=== PATIENT | male | born 1965 | race Caucasian/White ===

== ENCOUNTER 2017-06-17 10:02 | Inpatient (IN) ==
[2017-06-17 10:48] LABS: Mean Corpuscular Hemoglobin 20.9 pg (28.0-33.3); Red Cell Distribution Width 26.5 % (11.5-14.5)
[2017-06-17 10:49] LABS: Hematocrit 21.3 % (37.5-50.1); Mean Corpuscular HGB Conc 29.1 g/dL (31.6-35.5); Mean Platelet Volume 9.4 fL (9.4-12.4); Platelet Count 435 K/mcL (140-400); Red Blood Count 2.96 M/mcL (4.19-5.50)
[2017-06-17 10:51] LABS: Hemoglobin 6.2 g/dL (12.9-16.9)
[2017-06-17 10:53] LABS: INR 1.1; Prothrombin Time 11.5 Seconds (9.4-12.1)
--- NOTE | 2017-06-17 10:53 | Emergency Department Note ---
Disposition Clinical Impression: Anemia Qualifiers: Anemia type: unspecified type Qualified Code(s): D64.9 - Anemia, unspecified Disposition: Still a Patient Condition: Fair Referrals: Jeyson Cantrell MD [Primary Care Provider] - Forms: ED Satisfaction Letter, Work/School Release Time of Disposition: 11:14 Recheck wound or abnormal lab - General Chief Complaint: ED General Medical Stated Complaint: Low Hemoglobin Time Seen by Provider: 06/17/17 10:27 Source: patient Limitations: no limitations Nursing Notes Reviewed: Yes Vital Signs Reviewed: Yes - History of Present Illness HPI Narrative: Nontoxic-appearing 51-year-old male presents for evaluation of low hemoglobin. The patient states that he was notified by his primary care provider that blood work drawn on 06/10/70 showed a hemoglobin of 6.5. The patient has been dealing with lower gastrointestinal bleeding from both internal and external hemorrhoids for the past several months. He states that 2 weeks ago, this required transfusion of 4 units of packed red blood cells due to a hemoglobin of 3.5. He states that he is asymptomatic at this time. He denies any chest pain, shortness of breath, lightheadedness, dizziness, abdominal pain, or fever. He denies any fatigue or weakness. He is scheduled for surgery on these hemorrhoids June 27 at [facility]. Pt Subjective Complaint: abnormal lab(s) Associated symptoms: other - Related Data Home Medications Medication Instructions Recorded Confirmed Hydrocodone/Acetaminophen [Blair 1 tab PO Q6H PRN 06/27/15 06/27/15 7.5-325 Tablet] Previous Rx's Medication Instructions Recorded Aspirin Enteric Coated [Aspirin EC] 81 mg PO DAILY #30 tablet. 06/29/15 Atorvastatin [Lipitor] 40 mg PO HS #30 tablet 06/29/15 Clopidogrel [Plavix] 75 mg PO DAILY #30 tablet 06/29/15 Allergies Allergy/AdvReac Type Severity Reaction Status Date / Time No Known Allergies Allergy Verified 06/17/17 10:25 Review of Systems: Low hemoglobin All systems ED: reviewed and negative except as stated. Constitutional: Denies: fever, chills, weakness, weight change Eyes: Denies: eye pain, eye discharge, vision change ENT ED: Denies: ear pain, throat pain, dental pain, hearing loss, epistaxis, congestion, dysphagia Cardiovascular: Denies: chest pain, palpitations, dyspnea on exertion, edema, syncope Respiratory: Denies: cough, dyspnea, wheezes, hemoptysis, stridor Gastrointestinal: Denies: abdominal pain, nausea, vomiting, diarrhea, constipation, hematemesis, melena, hematochezia Genitourinary: Denies: urgency, dysuria, frequency, hematuria Musculoskeletal: Denies: back pain, neck pain, arthralgia, myalgia Integumentary: Denies: rash, abrasion, lesions Neurological: Denies: headache, weakness, numbness, paresthesias, confusion, abnormal gait, vertigo Psychiatric: Denies: anxiety, depression, suicidal thoughts, homicidal thoughts , auditory hallucinations, visual hallucinations Endocrine: Denies: fatigue Hematological/Lymphatic: Denies: easy bleeding, easy bruising Allergic/Immunologic: Denies: facial swelling, urticaria Past Medical History - Past Medical History Attestation: Yes The following information was validated with the patient. Source: patient, nursing notes reviewed Medical history: Reports: other Surgical history: Reports: other Psychiatric history: Reports: no psych history - Social History Smoking Status: Current every day smoker Smokeless Tobacco Status: No Alcohol use: Reports: none Drug use: Reports: none Physical Exam - General Limitations: no limitations General appearance: alert - Head Head exam: atraumatic, normocephalic, normal inspection - Eye Eye exam: Present: normal appearance, PERRL, EOMI. Absent: nystagmus - ENT ENT exam: mucous membranes moist - Neck Neck exam: Present: normal inspection, full ROM, trachea midline - Chest Chest inspection: Present: normal inspection, symmetric chest wall rise - Respiratory Respiratory exam: Present: normal lung sounds bilaterally. Absent: respiratory distress, wheezes, stridor, accessory muscle use, prolonged expiratory phase - Cardiovascular Cardiovascular exam: Present: regular rate, normal rhythm, normal heart sounds - Abdominal Exam Abdominal exam: Present: soft, Non-Tender, normal bowel sounds - Extremities Exam Extremities exam: Present: normal inspection, full ROM. Absent: tenderness, pedal edema - Back Exam Back exam: Present: normal inspection, full ROM. Absent: tenderness - Neurological Exam Neurological exam: Present: alert, oriented X3 - Psychiatric Psychiatric exam: Present: normal affect, normal mood - Skin Skin exam: Present: warm, dry, intact, normal color Course Vital Signs Temperature 98.1 F 06/17/17 10:26 Pulse Rate 85 06/17/17 10:26 Respiratory Rate 20 06/17/17 10:26 Blood Pressure 108/64 06/17/17 10:26 O2 Sat by Pulse Oximetry 100 06/17/17 10:26 Temperature 98.1 F 06/17/17 10:26 Pulse Rate 85 06/17/17 10:26 Respiratory Rate 20 06/17/17 10:26 Blood Pressure 108/64 06/17/17 10:26 O2 Sat by Pulse Oximetry 100 06/17/17 10:26 Oxygen Delivery Oxygen Delivery Room Air Recheck wound or abnormal lab - Medical Records Medical records reviewed: Yes I reviewed the patient's medical records. - Lab Data Result diagrams: 06/17/17 10:40 06/17/17 10:40 Lab Results 06/17/17 06/17/17 06/17/17 Range/Units 10:40 10:40 10:40 WBC 8.8 (4.3-11.1) K/mcL RBC 2.96 L (4.19-5.50) M/mcL Hgb 6.2 L (12.9-16.9) g/dL Hct 21.3 L (37.5-50.1) % MCV 72.0 L (83.0-100.0) fL MCH 20.9 L (28.0-33.3) pg MCHC 29.1 L (31.6-35.5) g/dL RDW 26.5 H (11.5-14.5) % Plt Count 435 H (140-400) K/mcL MPV 9.4 (9.4-12.4) fL PT 11.5 (9.4-12.1) Seconds INR 1.1 APTT 27.9 (26.0-36.0) Seconds Sodium 138 (136-145) mEq/L Potassium 3.6 (3.5-4.5) mEq/L Chloride 106 (98-109) mEq/L Carbon Dioxide 26 (19-29) mEq/L BUN 15 (8-26) mg/dL Creatinine 0.96 (0.72-1.25) mg/dL Est GFR ( Amer) > 60 (> 60) Est GFR (Non-Af Amer) > 60 (> 60) BUN/Creatinine Ratio 16 (6-26) Glucose 105 H (70-99) mg/dL Calculated Osmolality 287 (280-300) Calcium 8.5 L (8.6-10.8) mg/dL SShu - Irma Situation: Demographics, MOA Background: Presenting Complaint, Relevant PMH, Meds, & Allergies Assessment: Vital Signs, Course and respsone to treatment, Exam Concerns, Patient/Family Expectation, Pertinant Lab Results, Outstanding Labs Recommendation: Barrier(s) to disposition, Recommendation based on pending studies, treatments, or consults S.B.Abraham Report Given to: Dr. Woodrow Solis Repor Time: 11:12
[2017-06-17 10:55] LABS: Activated Partial Thrombo Time 27.9 Seconds (26.0-36.0)
[2017-06-17 10:59] LABS: BUN/Creatinine Ratio 16 (6-26); Blood Urea Nitrogen 15 mg/dL (8-26); Calcium 8.5 mg/dL (8.6-10.8); Carbon Dioxide 26 mEq/L (19-29); Chloride 106 mEq/L (98-109); Glucose 105 mg/dL (70-99); Osmolality,Calculated 287 (280-300); Potassium 3.6 mEq/L (3.5-4.5); Sodium 138 mEq/L (136-145); eGFR For African Americans > 60 (> 60); eGFR For Non-African Americans > 60 (> 60)
[2017-06-17 11:21] LABS: Anisocytosis 1+ (Not Present); Eosinophils # 0.2 K/mcL (0.0-0.6); Hypochromasia Present (Not Present); Lymphocytes # 1.9 K/mcL (0.6-4.6); Monocytes # 0.4 K/mcL (0.0-1.3); Neutrophils # 6.3 K/mcL (1.6-8.9); Ovalocytes 1+ (Not Present)
[2017-06-17 11:22] LABS: Platelet Estimate Normal (Normal); Polychromasia 2+ (Not Present); Schistocytes 1+ (Not Present); Stomatocytes 1+ (Not Present); Target Cells 2+ (Not Present); Tear Drop Cells 1+ (Not Present)
--- NOTE | 2017-06-17 12:04 | Emergency Department Note ---
Disposition Clinical Impression: Lower GI bleed, Blood loss anemia Anemia Qualifiers: Anemia type: unspecified type Qualified Code(s): D64.9 - Anemia, unspecified Disposition: Still a Patient Condition: Fair Time of Disposition: 12:08 GI Bleed HPI - General Chief complaint: ED General Medical Stated complaint: Low Hemoglobin Time Seen by Provider: 06/17/17 10:27 Source: patient Limitations: no limitations Nursing Notes Reviewed: Yes Vital Signs Reviewed: Yes - History of Present Illness HPI Narrative: Patient has had recurrent rectal bleeding intermittently for the past 2 months but worse in the last month. He was recently seen by a local urologist due to a cyst on one of his testicles. He was not satisfied with the care is with primary care physician referred him to another urologist at [facility] and was. As part of his preoperative workup he was found to be profoundly anemic and this was determined to be secondary to lower GI bleeding. Examination suggested that this was coming from internal and external hemorrhoids. He scheduled to have these banded on June 27 been exposed to go back up for a colonoscopy before that point. He does have history of coronary disease with previous stents and currently takes Plavix. He has tried to stop taking the Plavix in the past but developed chest pain and had to resumed taking the Plavix. He has not had a colonoscopy greater than 10 years. Complains of fatigue but no gross chest discomfort or dyspnea at this time. No lightheadedness or dizziness. Pt Subjective Complaint: blood streaked stool, gross hematochezia Onset (ago): week(s) Consistency: intermittent Severity: moderate Improves with: nothing Worsens with: nothing Context: hemorrhoids - Related Data Home Medications Medication Instructions Recorded Confirmed Hydrocodone/Acetaminophen [Burnett 1 tab PO Q6H PRN 06/27/15 06/17/17 7.5-325 Tablet] Metoprolol Succinate 12.5 mg PO DAILY 06/17/17 06/17/17 Previous Rx's Medication Instructions Recorded Aspirin Enteric Coated [Aspirin EC] 81 mg PO DAILY #30 tablet. 06/29/15 Atorvastatin [Lipitor] 40 mg PO HS #30 tablet 06/29/15 Clopidogrel [Plavix] 75 mg PO DAILY #30 tablet 06/29/15 Allergies Allergy/AdvReac Type Severity Reaction Status Date / Time No Known Allergies Allergy Verified 06/17/17 10:25 All systems ED: reviewed and negative except as stated. Constitutional: Denies: fever, chills, weakness, weight change Eyes: Denies: eye pain, eye discharge, vision change ENT ED: Denies: ear pain, throat pain, dental pain, hearing loss, epistaxis, congestion, dysphagia Cardiovascular: Denies: chest pain, palpitations, dyspnea on exertion, edema, syncope Respiratory: Denies: cough, dyspnea, wheezes, hemoptysis, stridor Gastrointestinal: Denies: abdominal pain, nausea, vomiting, diarrhea, constipation, hematemesis, melena, hematochezia Genitourinary: Denies: urgency, dysuria, frequency, hematuria Musculoskeletal: Denies: back pain, neck pain, arthralgia, myalgia Integumentary: Denies: rash, abrasion, lesions Neurological: Denies: headache, weakness, numbness, paresthesias, confusion, abnormal gait, vertigo Psychiatric: Denies: anxiety, depression, suicidal thoughts, homicidal thoughts , auditory hallucinations, visual hallucinations Endocrine: Denies: fatigue Hematological/Lymphatic: Denies: easy bleeding, easy bruising Allergic/Immunologic: Denies: facial swelling, urticaria Past Medical History - Past Medical History Attestation: Yes The following information was validated with the patient. Source: patient Medical history: Reports: other Surgical history: Reports: other Psychiatric history: Reports: no psych history - Social History Smoking Status: Current every day smoker Smokeless Tobacco Status: No Alcohol use: Reports: none Drug use: Reports: none Physical Exam Generally well-appearing, no apparent distress. Talkative and interactive. - General Limitations: no limitations General appearance: alert - Head Head exam: atraumatic, normocephalic - Eye Eye exam: Present: normal appearance - ENT ENT exam: normal exam, normal oropharynx - Neck Neck exam: Present: normal inspection, full ROM - Chest Chest inspection: Present: normal inspection - Respiratory Respiratory exam: Present: normal lung sounds bilaterally - Cardiovascular Cardiovascular exam: Present: regular rate, normal rhythm - Abdominal Exam Abdominal exam: Present: soft, Non-Tender - Rectal Exam Superintendent Recreation present during exam: No Rectal exam: Present: heme (+) stool, hemorrhoids, tenderness - Extremities Exam Extremities exam: Present: normal inspection - Back Exam Back exam: Absent: CVA tenderness (R), CVA tenderness (L) - Neurological Exam Neurological exam: Present: alert, oriented X3 - Psychiatric Psychiatric exam: Present: normal affect - Skin Skin exam: Present: warm, dry Course Course Narrative: Patient does appear to have a small amount of ongoing lower GI bleeding. Rectal exam was extremely tender and I suspect there may be anal fissure involved as well. He is currently dependent on the Plavix which is aggravating the ongoing bleeding. Hemoglobin is now down to 6.2 but some of the parameters are suggestive of possible iron deficiency as well. He was reportedly at [facility] due to the urology referral but does not really want to have the colonoscopy and hemorrhoid surgery there. He would prefer to have that done here since he lives locally. We will plan on doing at least one unit transfusion and see if we can get him admitted here for the workup and treatment - Reevaluation(s) Reevaluation #1: After patient started a lot of the transfusion of the first unit of blood and arrangements have been made for admission and GI consultation he has now decided he does not want to stay in the hospital. He wants colonoscopy done right away right now. It was explained to him that this would not be done because he needs to have his hemoglobin up to a reasonable level and must have appropriate bowel prep. He is not satisfied with this answer and just wants to leave after the unit bolus transfusion. He will be discharged AGAINST MEDICAL ADVICE. Smoking cessation is strongly endorsed. He will pursue his outpatient colonoscopy that sorry scheduled for [facility] and a little. Time: 14:34 Reevaluation #2: Patient ultimately changed his mind and was willing to stay for further transfusion and workup. Time: 16:23 Vital Signs Temperature 98.1 F 06/17/17 10:26 Pulse Rate 85 06/17/17 10:26 Respiratory Rate 20 06/17/17 10:26 Blood Pressure 108/64 06/17/17 10:26 O2 Sat by Pulse Oximetry 100 06/17/17 10:26 Temperature 98.4 F 06/17/17 16:00 Pulse Rate 70 06/17/17 16:00 Respiratory Rate 18 06/17/17 16:00 Blood Pressure 116/74 06/17/17 16:00 O2 Sat by Pulse Oximetry 100 06/17/17 13:21 Oxygen Delivery Oxygen Delivery Room Air GI Bleed - Lab Data Result diagrams: 06/17/17 10:40 06/17/17 10:40 Lab Results 06/17/17 06/17/17 06/17/17 Range/Units 10:40 10:40 10:40 WBC 8.8 (4.3-11.1) K/mcL RBC 2.96 L (4.19-5.50) M/mcL Hgb 6.2 L (12.9-16.9) g/dL Hct 21.3 L (37.5-50.1) % MCV 72.0 L (83.0-100.0) fL MCH 20.9 L (28.0-33.3) pg MCHC 29.1 L (31.6-35.5) g/dL RDW 26.5 H (11.5-14.5) % Plt Count 435 H (140-400) K/mcL MPV 9.4 (9.4-12.4) fL Seg Neutrophils % 72.0 % Lymphocytes % 22.0 % Monocytes % 4.0 % Eosinophils % 2.0 % Neutrophils # 6.3 (1.6-8.9) K/mcL Lymphocytes # 1.9 (0.6-4.6) K/mcL Monocytes # 0.4 (0.0-1.3) K/mcL Eosinophils # 0.2 (0.0-0.6) K/mcL Platelet Estimate Normal (Normal) Polychromasia 2+ A (Not Present) Hypochromasia Present A (Not Present) Anisocytosis 1+ A (Not Present) Target Cells 2+ A (Not Present) Tear Drop Cells 1+ A (Not Present) Ovalocytes 1+ A (Not Present) Stomatocytes 1+ A (Not Present) Schistocytes 1+ A (Not Present) PT 11.5 (9.4-12.1) Seconds INR 1.1 APTT 27.9 (26.0-36.0) Seconds Sodium 138 (136-145) mEq/L Potassium 3.6 (3.5-4.5) mEq/L Chloride 106 (98-109) mEq/L Carbon Dioxide 26 (19-29) mEq/L BUN 15 (8-26) mg/dL Creatinine 0.96 (0.72-1.25) mg/dL Est GFR ( Amer) > 60 (> 60) Est GFR (Non-Af Amer) > 60 (> 60) BUN/Creatinine Ratio 16 (6-26) Glucose 105 H (70-99) mg/dL Calculated Osmolality 287 (280-300) Calcium 8.5 L (8.6-10.8) mg/dL Iron 6 L (65-175) mcg/dL % Saturation 1 L (20-55) % Transferrin 316 (174-364) mg/dL Blood Type Antibody Screen Crossmatch 06/17/17 Range/Units 10:40 WBC (4.3-11.1) K/mcL RBC (4.19-5.50) M/mcL Hgb (12.9-16.9) g/dL Hct (37.5-50.1) % MCV (83.0-100.0) fL MCH (28.0-33.3) pg MCHC (31.6-35.5) g/dL RDW (11.5-14.5) % Plt Count (140-400) K/mcL MPV (9.4-12.4) fL Seg Neutrophils % % Lymphocytes % % Monocytes % % Eosinophils % % Neutrophils # (1.6-8.9) K/mcL Lymphocytes # (0.6-4.6) K/mcL Monocytes # (0.0-1.3) K/mcL Eosinophils # (0.0-0.6) K/mcL Platelet Estimate (Normal) Polychromasia (Not Present) Hypochromasia (Not Present) Anisocytosis (Not Present) Target Cells (Not Present) Tear Drop Cells (Not Present) Ovalocytes (Not Present) Stomatocytes (Not Present) Schistocytes (Not Present) PT (9.4-12.1) Seconds INR APTT (26.0-36.0) Seconds Sodium (136-145) mEq/L Potassium (3.5-4.5) mEq/L Chloride (98-109) mEq/L Carbon Dioxide (19-29) mEq/L BUN (8-26) mg/dL Creatinine (0.72-1.25) mg/dL Est GFR ( Amer) (> 60) Est GFR (Non-Af Amer) (> 60) BUN/Creatinine Ratio (6-26) Glucose (70-99) mg/dL Calculated Osmolality (280-300) Calcium (8.6-10.8) mg/dL Iron (65-175) mcg/dL % Saturation (20-55) % Transferrin (174-364) mg/dL Blood Type B POSITIVE Antibody Screen NEGATIVE Crossmatch See Detail Attestation Statement - Attestation Attestation: The high probability of a clinically significant, sudden or life threatening deterioration of the [] system(s) required my full and direct attention, intervention and personal management. The aggregate critical care time was [15] minutes. This time is in addition to time spent performing reported procedures but includes the following: [x] Data Review and interpretation [x] Patient assessment and monitoring of vital signs [x] Documentation [x] Medication orders and management
[2017-06-17 12:15] LABS: % Iron Saturation 1 % (20-55); Iron 6 mcg/dL (65-175); Transferrin 316 mg/dL (174-364)
[2017-06-17] MEDS ORDERED: Naloxone 0.4 MG/ML INJ IVP PRN ×2 (14:47→14:49)
--- NOTE | 2017-06-17 14:48 | Gastroenterology Consult Note ---
<Channing Prado - Last Filed: 06/17/17 15:41> Date of Encounter: 06/17/17 Time of Encounter: 14:48 - Assessment and plan (1) Lower GI bleed Status: Acute Assessment and plan: brb per rectum hgb 6.2 being transfused 3 [facility] on plavix for s/p PCI x 2 stents in 2014 hx of hemorrhoids had brb per rectum 15 years ago, underwent colonoscopy which showed evidence of hemrrhoids. no intervention was done then and patient says bleeding resolved on its own. plan: EGD and colonoscopy tomorrow NPO d/c plavix PPI BID (2) Hypochromic microcytic anemia Status: Acute Assessment and plan: microcytic hypochormic anemia iron deficiency anemia 2nd to GI bleed plan: EGD and colonoscopy (3) CAD (coronary artery disease) Status: Acute Assessment and plan: hx of CAD s/p PCI x2 stents in mid-distal RCA in 2014 on plavix and aspirin at home hold aspirin and plavix Qualifiers: Coronary Disease-Associated Artery/Lesion type: [place] artery [place] vs. transplanted heart: [place] heart Associated angina: without angina Qualified Code(s): I25.10 - Atherosclerotic heart disease of [place] coronary artery without angina pectoris (4) Tobacco abuse Status: Chronic Assessment and plan: smokes 1.5ppd patient educated on smoking cessation (5) DVT prophylaxis Status: Acute Assessment and plan: epcd - Time Spent With Patient Total time spent is greater than 50% in coordination of care (as documented) at patient's floor/unit and/or counseling patient: GI History of Present Illness - Data of Consult Patient: new to practice Consult date: 06/17/17 Requesting Physician: Carrillo Mena MD - Consult Narrative Reason for consult: GI bleed History of present illness: Mr. Gaspar is a 51 year old male presents with chief complaint of bright red blood per rectum. Patient states this started one month ago. Reports having brb per rectum 15 years ago and had a colonoscopy then with findings of hemorrhoids. States at that time hemorrhoids were not banded and his hematochezia resolved without any intervention. Patient's primary care ordered blood work last week where his hemoglobin is 6.5. Last week patient was evaluated at [facility] for same brb per rectum and was told it was due to his hemorrhoids. He was transfused 4 units of packed red blood cells at that time. He was scheduled for colonoscopy and EGD and also for banding for his hemorrhoids and June 25 but reports he would like to get that done here because it is closer. during this admission patient's hemoglobin 6.2. Patient denies syncope, blurry vision, chest pain, shortness of breath, abdominal pain, nausea, vomiting. Denies history of alcohol use. Reports smoking 1.5 packs per day. Denies history of colon cancer. Denies family history of colon cancer. Reports she has never had an EGD in the past. Patient reports she has a history of coronary disease with 2 stents placed in the RCA in 2014 and is on Plavix. Past Med Surg Social Fam HX - Past Medical History Medical history: other Psychiatric history: no psych history - Past Surgical History Surgical History: other - Social History Smoking Status: Current every day smoker Smokeless Tobacco Status: No Alcohol use: none Drug use: none - Family History Father Hx Family Cardiac Disorders: Yes Hx Family Respiratory Disorders: No Hx Family Cancer: Yes Hx Family GI Disorders: No Hx Family Endocrine Disorder: No Hx Family Neuromuscular Disorders: No Hx Family Neurologic Disorders: No Hx Family HEENT Disorders: No Hx Family Autoimmune Disorders: No Review of Systems: Constitutional: Denies fever, chills HEENT: Denies headache, vision changes, neck pain, sore throat, rhinorrhea Heart: Denies chest pain palpitations Lungs: Denies shortness of breath cough Abdomen: Denies abdominal pain nausea vomiting diarrhea. Reports bright red blood per rectum Back: Denies back pain Kidney: Denies dysuria, hematuria Skin: warm and dry Extremities: Denies swelling, pain Neuro: Denies numbness, and tingling - Constitutional Vitals: Temp Pulse Resp BP Pulse Ox 98.2 F 74 18 108/66 100 06/17/17 13:36 06/17/17 13:36 06/17/17 13:36 06/17/17 13:36 06/17/17 13:21 - Other Additional findings: General: Pleasant without distress HEENT: Head atraumatic, normocephalic, EOMI, PERRL, neck nontender to palpation , absent lymphadenopathy, Moist Mucous Membranes, Heart: Regular rate and rhythm with no murmur Lungs: Clear to auscultation bilaterally Abdomen: Soft nontender, nondistended positive bowel sounds Skin: warm and dry Extremities: Absent pedal edema, Neuro: Alert and oriented 3 Vascular: Pedal and radial pulses 2 out of 4 Results - Labs CBC & Chem 7: 06/17/17 10:40 06/17/17 10:40 Labs: Last Result Calcium 8.5 mg/dL (8.6-10.8) L 06/17/17 10:40 Iron 6 mcg/dL (65-175) L 06/17/17 10:40 % Saturation 1 % (20-55) L 06/17/17 10:40 Transferrin 316 mg/dL (174-364) 06/17/17 10:40 Entire Visit Hgb 6.2 g/dL (12.9-16.9) L 06/17/17 10:40 Hct 21.3 % (37.5-50.1) L 06/17/17 10:40 PT 11.5 Seconds (9.4-12.1) 06/17/17 10:40 - ABG ABG results: PT/INR, D-dimer PT 11.5 Seconds (9.4-12.1) 06/17/17 10:40 Consult Discharge Plan - Plan Instructions: How to Stop Smoking (DC), Gastrointestinal Bleeding (DC), Anemia (GEN) Additional Instructions: F/up with PCP in 1-2 weeks F/up with GI Dr/Luca in 3-4 weeks Referrals: Jeyson Cantrell MD [Primary Care Provider] - (Please call and schedule your appointment in the am) Ashleigh Segovia MD [Partnered Physician] - (Please call and schedule an appointment with Dr. Segovia in the Am) Prescriptions: Docusate [Colace] 100 mg PO BID #60 capsule Ferrous Sulfate 325 mg PO BIDWM #60 tablet Pantoprazole Sodium [Protonix] 40 mg PO BID #60 tablet. <Yonathan Jo - Last Filed: 06/25/17 10:53> Date of Encounter: 06/17/17 - Time Spent With Patient Total time spent is greater than 50% in coordination of care (as documented) at patient's floor/unit and/or counseling patient: GI History of Present Illness - Data of Consult Requesting Physician: Cecilia Thrasher MD - Consult Narrative History of present illness: Mr. Gaspar is a 51 year old male - Constitutional Vitals: Temp Pulse Resp BP Pulse Ox 98.0 F 65 18 105/82 99 06/18/17 07:20 06/18/17 13:50 06/18/17 13:50 06/18/17 13:50 06/18/17 13:50 Results - Labs CBC & Chem 7: 06/18/17 03:35 06/18/17 03:35 Labs: Last Result Calcium 8.6 mg/dL (8.6-10.8) 06/18/17 03:35 Iron 6 mcg/dL (65-175) L 06/17/17 10:40 % Saturation 1 % (20-55) L 06/17/17 10:40 Transferrin 316 mg/dL (174-364) 06/17/17 10:40 Triglycerides 68 mg/dL (< 150) 06/18/17 03:35 Entire Visit Hgb 8.8 g/dL (12.9-16.9) L D 06/18/17 03:35 Hct 28.4 % (37.5-50.1) L 06/18/17 03:35 PT 11.6 Seconds (9.4-12.1) 06/18/17 03:35 Total Bilirubin 1.1 mg/dL (0.2-1.2) 06/18/17 03:35 AST 22 Units/L (5-34) 06/18/17 03:35 ALT 15 Units/L (0-55) 06/18/17 03:35 - ABG ABG results: PT/INR, D-dimer PT 11.6 Seconds (9.4-12.1) 06/18/17 03:35 - Attending Attestation I examined this patient and my medical decision-making was reviewed with the Resident Physician. I agree with the documented findings, disposition and treatment plan as described except to the extent set forth below.
[2017-06-17] MEDS ORDERED: SODIUM CHLORIDE/NAHCO3/KCL/PEG 4,000 ML SOLN.RECON PO ONE (14:52)
--- NOTE | 2017-06-17 14:57 | Internal Med History&Physical ---
Date of Encounter: 06/18/17 Time of Encounter: 14:54 Assessment and Plan (1) Lower GI bleed Status: Acute 51/male Ongoing lower GI bleed for more than a couple of weeks. Was previously evaluated [facility]. Patient was with the PCP and PCP got the lab work. PCP sent patient to the emergency room for abnormal hemoglobin: 6.2. Patient has a gianna blood per rectum. Aspirin/Plavix on hold. Plan: Admit as inpatient. IV pantoprazole 40 mg every 12. Transfuse 2 units of blood altogether. Consult GI for possible EGD/colonoscopy. CT abdomen and pelvis with and without contrast. I examined this patient in emergency room #11. Plan explained to the patient and he verbalized understanding. Please see history of present illness for details (2) Anemia Status: Acute See above Qualifiers: Anemia type: unspecified type Qualified Code(s): D64.9 - Anemia, unspecified (3) DVT prophylaxis Status: Acute Patient is a candidate for pharmacological DVT prophylaxis. Patient will get a SCD Medical decision making: This patient has a moderate to severe risk of worsening in spite of being on appropriate medication and treatment due to the underlying chronic comorbid conditions. Internal Medicine - H&P: HPI Chief complaint: Abnormal labs Admitted From: Emergency Dept Plans for Post Hospital Care: Home History of present illness: PCP: Jeyson Cantrell Brief PMH: No significant past medical history History of present illness : Mr. Gaspar is a 51 year old male came here with abnormal labs. Patient claims that he has a low hemoglobin. Patient was seen by his primary care and blood work ordered by the primary care suggestive of hemoglobin of 6.5. Patient has ongoing lower gastrointestinal bleed for past several months. Patient claims that this bleeding is from hemorrhoidal bleeds and he has been evaluated previously for the same patient claims that his lowest hemoglobin was 3.5. patient also claims that the [facility] gave him 4 units when his hemoglobin was 3.5 and those 4 units lead to his hemoglobin 12. He firmly believes in that and he prefers to get his hemoglobin to that level by minimum transfusion. Patient does not follow Buddhism. Patient was evaluated in the emergency room. basic labs were drawn. Noted that his hemoglobin is 6.2. Emergency room physician started transfusing 1 backbends to leave it to him. Patient is not sure whether he wants to stay in this [facility] [place] [facility]/Dr. Russell. Patient also wanted to get a colonoscopy done today and that is kind of his priority. I had a long chat with the patient and explained again that there is no way he can get his colonoscopy done today. I explained patient that we will call gastroenterology and we will get their help. Patient agreed for the same and his mental state in this hospital for further evaluation. Reason for hospitalization: Possible GI bleed Family History: Noncontributory Past Med Surg Social Fam HX - Past Medical History Medical history: other Psychiatric history: no psych history - Past Surgical History Surgical History: other - Social History Smoking Status: Current every day smoker Smokeless Tobacco Status: No Alcohol use: none Drug use: none - Family History Father Hx Family Cardiac Disorders: Yes Hx Family Respiratory Disorders: No Hx Family Cancer: Yes Hx Family GI Disorders: No Hx Family Endocrine Disorder: No Hx Family Neuromuscular Disorders: No Hx Family Neurologic Disorders: No Hx Family HEENT Disorders: No Hx Family Autoimmune Disorders: No Internal Medicine - H&P: Meds Hydrocodone/Acetaminophen [[place] 7.5-325 Tablet] 1 tab PO Q6H PRN 06/27/15 [ History] Aspirin Enteric Coated [Aspirin EC] 81 mg PO DAILY #30 tablet. 06/29/15 [Rx] Atorvastatin [Lipitor] 40 mg PO HS #30 tablet 06/29/15 [Rx] Clopidogrel [Plavix] 75 mg PO DAILY #30 tablet 06/29/15 [Rx] Metoprolol Succinate 12.5 mg PO DAILY 06/17/17 [History] Docusate [Colace] 100 mg PO BID #60 capsule 06/18/17 [Rx] Ferrous Sulfate 325 mg PO BIDWM #60 tablet 06/18/17 [Rx] Pantoprazole Sodium [Protonix] 40 mg PO BID #60 tablet. 06/18/17 [Rx] 3 Allergy/AdvReac Type Severity Reaction Status Date / Time No Known Allergies Allergy Verified 06/17/17 10:25 All Systems PM: A 10-system review of systems was performed and is negative for pertinent findings except as documented above in the HPI. - Constitutional Constitutional: no chills, no fever(s), no night sweats - EENT Eyes: no change in vision, no discharge, no pain, no photophobia Ears: no ear discharge, no ear pain, no tinnitus Nose, mouth and throat: no dysphagia, no nasal discharge, no neck pain, no sore throat - Cardiovascular Cardiovascular ROS IM: no chest pain, no diaphoresis, no dyspnea, no lightheadedness, no palpitations, no syncope - Respiratory Respiratory: no cough, no dyspnea, no wheezing, no excessive phlegm production - Gastrointestinal Gastrointestinal: hematochezia, loose stools, melena, no abdominal pain, no diarrhea, no hematemesis, no nausea, no vomiting - Musculoskeletal Musculoskeletal ROS IM: no numbness, no tingling - Integumentary Integumentary IM: no rash, no unusual bruising - Neurological Neurological ROS: no confusion, no convulsions, no focal weakness, no numbness, no tingling, no tremor(s) - Hematologic/Lymphatic Hematologic/Lymphatic: no easy bruising - Constitutional Vitals: Temp Pulse Resp BP Pulse Ox 98.2 F 74 18 108/66 100 06/17/17 13:36 06/17/17 13:36 06/17/17 13:36 06/17/17 13:36 06/17/17 13:21 General appearance: Present: A&O X 3, pleasant, no acute distress, answers questions appropriately - Head Head exam: Present: atraumatic, normocephalic - Eye Eye exam: Present: PERRL, conjuntiva pink, sclera anicteric Pupils: Present: PERRL - Neck Neck exam general surgery: Present: supple, trachea midline. Absent: lymphadenopathy - Respiratory Respiratory exam: Present: CTAB. Absent: accessory muscle use, rales, rhonchi, wheezes - Cardiovascular Cardiovascular exam: Present: RRR, +S1, +S2. Absent: diastolic murmur, gallop, rubs, systolic murmur - GI/Abdominal GI/Abdominal exam: Present: normal bowel sounds, soft, no peritoneal signs. Absent: distended, tenderness - Extremities Exam Extremities exam: Present: warm, radial pulses palpable and symmetrical. Absent : calf tenderness, cyanotic, pedal edema - Neurological Exam Neurological exam: Present: CN II-XII intact, oriented X3, no focal deficits. Absent: pronater drift, facial droop, speech deficit - Skin Skin exam: Present: dry, intact Internal Med - H&P Results - Labs CBC & Chem 7: 06/18/17 03:35 06/18/17 03:35
[2017-06-17] MEDS ORDERED: 0.9 % Sodium Chloride 250 ML ONE ×2 (16:51→22:57)
[2017-06-17] MEDS: Pantoprazole 40 MG VIAL IVP SCH (17:24)
[2017-06-17] MEDS: *HR* HYDROcodone/Acet 7.5/325 mg TABLET PO PRN ×2 (17:37→23:42)
[2017-06-18 03:52] LABS: INR 1.1; Prothrombin Time 11.6 Seconds (9.4-12.1)
[2017-06-18 03:54] LABS: Activated Partial Thrombo Time 28.7 Seconds (26.0-36.0)
[2017-06-18 03:56] LABS: Basophils # 0.1 K/mcL (0.0-0.2); Basophils % 1.9 %; Eosinophils # 0.2 K/mcL (0.0-0.6); Eosinophils % 3.6 %; Hematocrit 28.4 % (37.5-50.1); Immature Granulocytes % 0.2 % (0-4); Lymphocytes % 30.9 %; Mean Corpuscular Hemoglobin 23.2 pg (28.0-33.3); Mean Corpuscular Volume 74.9 fL (83.0-100.0); Mean Platelet Volume 9.5 fL (9.4-12.4); Monocytes # 0.6 K/mcL (0.0-1.3); Monocytes % 9.4 %; Neutrophils # 3.4 K/mcL (1.6-8.9); Platelet Count 366 K/mcL (140-400); Red Blood Count 3.79 M/mcL (4.19-5.50); Red Cell Distribution Width 22.6 % (11.5-14.5)
[2017-06-18 04:08] LABS: Alanine Aminotransferase 15 Units/L (0-55); Albumin/Globulin Ratio 0.9 (1.1-2.2); Alkaline Phosphatase 54 Units/L (38-126); Aspartate Amino Transferase 22 Units/L (5-34); BUN/Creatinine Ratio 13 (6-26); Bilirubin,Total 1.1 mg/dL (0.2-1.2); Blood Urea Nitrogen 11 mg/dL (8-26); Calcium 8.6 mg/dL (8.6-10.8); Carbon Dioxide 22 mEq/L (19-29); Chloride 107 mEq/L (98-109); Chol/HDL Ratio 2.8 (0-4.9); Cholesterol 116 mg/dL (< 200); Globulin 3.3 g/dL (2.4-3.5); Glucose 83 mg/dL (70-99); HDL Cholesterol 42 mg/dL (40-59); LDL Cholesterol,Calculated 60 mg/dL (0-99); Magnesium 1.8 mg/dL (1.6-2.6); Osmolality,Calculated 281 (280-300); Phosphorous 3.2 mg/dL (2.3-4.7); Sodium 136 mEq/L (136-145); Total Protein 6.3 g/dL (6.0-8.3); Triglycerides 68 mg/dL (< 150); eGFR For African Americans > 60 (> 60); eGFR For Non-African Americans > 60 (> 60)
[2017-06-18 04:14] LABS: Hemoglobin 8.8 g/dL (12.9-16.9)
[2017-06-18] MEDS: *HR* HYDROcodone/Acet 7.5/325 mg TABLET PO PRN ×2 (05:44→12:03)
[2017-06-18] MEDS: Pantoprazole 40 MG VIAL IVP SCH (05:45)
[2017-06-18] MEDS ORDERED: Metoprolol XL (24 HR) Succ 25 MG TAB.ER.24H PO SCH (09:00)
--- NOTE | 2017-06-18 13:41 | Anesthesia Evaluation PreOp ---
Date of Encounter: 06/18/17 Time of Encounter: 13:36 - Past History Planned Operation: EGD/Colonoscopy Cardiac History: CO (07/04), Cardiac Stent (GIO 06-27-15), Other (anemia) Pulmonary History: Smoker, Pack/yr (3ppd x35) CORRECTIONS SPECIALIST History: Denies Any Significant HX Other Medical History: Other (Hx GI bleed with multiple transfusions) Anesthesia History: No Prior Anesthetic Complications, Past Anesthesia (remove cyst on abdominal wall) Alcohol Use: none Drug use: none Medications and Allergies Hydrocodone/Acetaminophen [[place] 7.5-325 Tablet] 1 tab PO Q6H PRN 06/27/15 [ History] Aspirin Enteric Coated [Aspirin EC] 81 mg PO DAILY #30 tablet. 06/29/15 [Rx] Atorvastatin [Lipitor] 40 mg PO HS #30 tablet 06/29/15 [Rx] Clopidogrel [Plavix] 75 mg PO DAILY #30 tablet 06/29/15 [Rx] Metoprolol Succinate 12.5 mg PO DAILY 06/17/17 [History] 3 Allergy/AdvReac Type Severity Reaction Status Date / Time No Known Allergies Allergy Verified 06/17/17 10:25 - Meds/Allergy Pre-op Review Medications Reviewed: Yes Allergies Reviewed: Yes Beta Blockers on Current Med List: Yes If Beta Blockers taken, Date/Time (Last Dose taken): today 075 Anesthesia Results - Labs 06/18/17 03:35 06/18/17 03:35 - Imaging Additional studies: cath 06/27/15: mpressions: There is severe one vessel coronary artery disease. There is moderate LV Dysfunction EF 40% Patient had successful PTCA/Drug-Eluting Stent placement O/L x 2 in the mid-distal RCA. Anesthesia Exam Selected Entries 06/18/17 07:20 Temperature 98.0 F Pulse Rate 64 Respiratory Rate 18 Blood Pressure 96/63 O2 Sat by Pulse Oximetry 97 Weight: 57kg NPO (# of Hours): 8 - HEENT Pupil (Motor): EOMI Mallampati: II Teeth: Edentulous Oral Opening: Greater than 3 - CORRECTIONS SPECIALIST LOC: Oriented CORRECTIONS SPECIALIST Motor: Normal RUE, Normal LUE, Normal RLE, Normal LLE, Normal Face CORRECTIONS SPECIALIST Sensory: Normal: RUE, LUE, RLE, LLE, Face - Cardiac Rhythm: Regular Murmur: None - Pulmonary Breath Sounds: bilateral Clear Respiratory Effort: Symmetrical - Additional Findings Patient is extremely angry. He reports this anemia is due to his hemorrhoids and that no one will listen to him. He reports this costing him everything he has. I offered Social Work to see hm and he refused saying t hat they can't do anything. Anesthesia Assess/Plan ASA Score: 3 Modified Albino Scale for Level of Consciousness: Cooperative, oriented, and tranquil Anesthetic Plan: MAC Monitoring Plan: Standard Monitors Recovery Plan: Other (discussed MAC, agrees to proceed)
[2017-06-18 13:51] VITALS: BP 105/82
[2017-06-18] MEDS ORDERED: 0.9 % Sodium Chloride 500 ML IVC SCH (14:00)
[2017-06-18] MEDS ORDERED: Propofol 500 MG/50 ML INFUS..BTL ONE (14:13)
[2017-06-18] MEDS ORDERED: Lidocaine -MPF 2% 2 ML VIAL ONE (14:14)
--- NOTE | 2017-06-18 16:23 | Discharge Summary ---
Date of Encounter: 06/18/17 Time of Encounter: 16:22 - Discharge Diagnosis (1) Blood loss anemia Priority: Primary Status: Acute (2) Lower GI bleed Priority: Primary Status: Acute (3) Tobacco abuse Priority: Secondary Status: Chronic (4) CAD (coronary artery disease) Priority: Secondary Status: Chronic Qualifiers: Coronary Disease-Associated Artery/Lesion type: [place] artery [place] vs. transplanted heart: [place] heart Associated angina: without angina Qualified Code(s): I25.10 - Atherosclerotic heart disease of [place] coronary artery without angina pectoris - Discharge Medications Prescriptions: Docusate [Colace] 100 mg PO BID #60 capsule Ferrous Sulfate 325 mg PO BIDWM #60 tablet Pantoprazole Sodium [Protonix] 40 mg PO BID #60 tablet. Home Medications: Hydrocodone/Acetaminophen [[place] 7.5-325 Tablet] 1 tab PO Q6H PRN 06/27/15 [ History] Aspirin Enteric Coated [Aspirin EC] 81 mg PO DAILY #30 tablet. 06/29/15 [Rx] Atorvastatin [Lipitor] 40 mg PO HS #30 tablet 06/29/15 [Rx] Clopidogrel [Plavix] 75 mg PO DAILY #30 tablet 06/29/15 [Rx] Metoprolol Succinate 12.5 mg PO DAILY 06/17/17 [History] Docusate [Colace] 100 mg PO BID #60 capsule 06/18/17 [Rx] Ferrous Sulfate 325 mg PO BIDWM #60 tablet 06/18/17 [Rx] Pantoprazole Sodium [Protonix] 40 mg PO BID #60 tablet. 06/18/17 [Rx] Allergies/Adverse Reactions: 3 Allergy/AdvReac Type Severity Reaction Status Date / Time No Known Allergies Allergy Verified 06/17/17 10:25 Procedures/tests Complete & Pending: Procedures Performed prior 72 hours Category Date Time Status CT abd pelvis w iv and oral [CT] Routine Cat Scan 06/17/17 18:30 Completed Date of admission: 06/17/17 13:40 Primary care physician: Jeyson Cantrell MD Consults: 06/17/17 14:52 Consult to Gastroenterology [CONS] Routine Consulting Provider: Gastroenterology Ana Reason for Consult: GI bleed, hemoglobin 6.2 Call Completed: Yes 06/17/17 17:19 Consult to Route Manager [CONS] Routine Reason for SW Consult: patient having financial concerns. Discharging clinician: Cecilia Thrasher Anticipated date of discharge: 06/18/17 - Patient Status Disposition: Home, Self-Care Condition: Good Functional capacity at discharge: independent ambulation Overall status at discharge: patient is progressing back to baseline - Discharge Instructions Instructions: How to Stop Smoking (DC), Gastrointestinal Bleeding (DC), Anemia (GEN) Follow Up With: Jeyson Cantrell MD [Primary Care Provider] - (Please call and schedule your appointment in the am) Ashleigh Segovia MD [Partnered Physician] - (Please call and schedule an appointment with Dr. Segovia in the Am) Additional Instructions: F/up with PCP in 1-2 weeks F/up with GI Dr/Luca in 3-4 weeks - Diet and Activity Activity: resume usual activities as tolerated Diet: low fat, low cholesterol, low salt diet Hospital course: Mr. Gaspar is a 51 year old male with history of coronary artery disease and recent stents and tobacco abuse, who was referred by his primary care provider for evaluation of acute anemia. Patient was noted to have a hemoglobin of 6.6 in the emergency room and reported history of intermittent rectal bleeding for several weeks. He received 2 units PRBC transfusion and hemoglobin improved to 8.8%. Iron studies showed low serum iron of 6, 1% transferrin saturation. Gastroenterology was consulted and patient underwent EGD and colonoscopy. EGD showed several nonbleeding gastric ulcers, largest measuring 15mm. Colonoscopy showed severe internal hemorrhoids and banding was done at 3 places. He had no further episodes of bleeding, and has been insisting on being discharged since admission. Case was d/w GI and patient is deemed stable for transfer with outpatient followup. He is being discharged on ferrous sulfate supplements, PPI and stool softeners. He was recommended to quit smoking, however he said he could never do that but would try to cut down on smoking. Time spent discussing smoking cessation with patient: 3 to 10 minutes - Time Spent with Patient Total time spent providing and/or coordinating discharge services: Greater than 30 minutes (45 min) - Constitutional Vitals: Temp Pulse Resp BP Pulse Ox 98.0 F 65 18 105/82 99 06/18/17 07:20 06/18/17 13:50 06/18/17 13:50 06/18/17 13:50 06/18/17 13:50 General appearance: Present: A&O X 3, pleasant, answers questions appropriately - Respiratory Respiratory exam: Present: CTAB. Absent: accessory muscle use, rales, rhonchi, wheezes - Cardiovascular Cardiovascular exam: Present: RRR, +S1, +S2. Absent: diastolic murmur, gallop, rubs, systolic murmur
== END 2017-06-18 17:15 | disposition home or self-care (01) | DRG 226 ==
LOC: 2ANU 10:02 → EMEROO 10:02 → SUATTDRO 13:40 → OBSVTOIN 13:40 → 2ANU 14:36
PROVIDERS: ADMIT Internal Medicine; ATTEND Internal Medicine
PROC: ENDOEBX (2017-06-18 13:15)